=== PATIENT | female | born 1975 | race Caucasian/White ===

== ENCOUNTER 2016-10-17 18:36 | Emergency (ER) | payer MEDICAID ==
[2016-10-17 18:51] VITALS: BP 118/72
--- NOTE | 2016-10-17 19:04 | EDM.PDOC ---
ED HPI Trauma - General Chief Complaint: Lower Extremity Injury/Pain Stated Complaint: LEFT KNEE PAIN Time Seen by Provider: 10/17/16 19:00 - History of Present Illness INITIAL COMMENTS - FREE TEXT/NARRATIVE: 71-year-old female presents emergency room with left knee pain. Approximately 5:00 this afternoon the patient fell leaving the [employer] parking lot. She crashed hard with her kneecap slowly getting solidly hitting the concrete. There may have been a twisting component to her knee as she went down. She was trying to protect her groceries, potatoes did not make it. Patient has a history of prior knee problems. She denies any other injuries from this fall however earlier this winter she did fall and fracture her tailbone. Past medical history noncontributory she's had a hysterectomy. Allergies/ADRs: Allergies latex Allergy (Verified 10/17/16 18:51) Hives Penicillins Allergy (Verified 10/17/16 18:51) Edema Sulfa (Sulfonamide Antibiotics) Allergy (Verified 10/17/16 18:51) Edema meperidine HCl [From Demerol] Adverse Reaction (Verified 03/07/16 10:07) Drowsiness Home Medications: Ambulatory Orders Aspirin [Adult Low Dose Aspirin EC] 1 tab PO DAILY 01/04/16 [Confirmed 10/17/16] L.acidoph,Paracasei, B.lactis [Probiotic] 1 cap PO DAILY 01/04/16 [Confirmed 10/31] Linaclotide [Linzess] 1 cap PO DAILY 01/04/16 [Confirmed 10/17/16] Polyethylene Glycol 3350 [MiraLAX] 17 gm PO DAILY 03/07/16 [Confirmed 10/17/16] Acetaminophen [Tylenol] 650 mg PO Q6H PRN #0 tablet 03/10/16 [Confirmed 10/17/16 ] Ibuprofen [Motrin] 400 mg PO Q6H PRN #0 tablet 03/10/16 [Confirmed 10/17/16] traMADol [Ultram] 25 mg PO BEDTIME 10/17/16 [Confirmed 10/17/16] Past Medical History HEENT History: Reports: Other (see below) Other HEENT History: tinnitus Respiratory History: Gastrointestinal History: Reports: Cholelithiasis, GERD, Helicobacter pylori Genitourinary History: Reports: Urinary incontinence 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: Reports: Endometriosis, Musculoskeletal History: Reports: Back pain, chronic Neurological History: Reports: Migraines, Seizure Psychiatric History: Reports: Anxiety, Depression Endocrine/Metabolic History: Reports: Obesity/BMI 30+ Immunologic History: Reports: SLE Other Immunologic History: diagnosed with lupus in 2014: self management at this time - Infectious Disease History Infectious Disease History: Reports: Helicobacter pylori - Past Surgical History Other Female Surgeries/Procedures: laparoscopic aspiration ovarian cyst Other Musculoskeletal Surgeries/Procedures:: bilateral foot surgery Social & Family History - Tobacco Use Smoking Status *Q: Current Every Day Smoker Years of Tobacco use: 15 Packs/Tins Daily: 0.5 Used Tobacco, but Quit: No Second Hand Smoke Exposure: Yes - Alcohol Use Days Per Week of Alcohol Use: 5 Number of Drinks Per Day: 1 Total Drinks Per Week: 5 - Recreational Drug Use Recreational Drug Use: No Drug Use in Last 12 Months: No Review of Systems - Review of Systems Review Of Systems: See Below Constitutional: Reports: no symptoms Respiratory: Reports: no symptoms Cardiovascular: Reports: no symptoms GI/Abdominal: Reports: No symptoms Trauma Exam - Physical Exam Exam: See Below Exam Limited By: No limitations General Appearance: Reports: alert, no apparent distress Respiratory Exam: Reports: no respiratory distress, lungs clear, normal breath sounds Cardiovascular: Reports: regular rate, rhythm, no edema, no murmur Extremities: Reports: other (Examination of the left knee shows mild swelling around the base the patella the patella palpates intact is very tender exact tension of her lower leg is tender to the patella. Palpation of her knee reveals no tenderness over the lateral joint line or LCL she has some modest tenderness over the medial joint line and MCL she has mild distraction with stressing the MCL this is hard to do because of pre-existing discomfort.) Course - Vital Signs Last Recorded V/S: Last Vital Signs Temp 36.7 C 10/17/16 18:40 Pulse 82 10/17/16 18:40 Resp 16 10/17/16 18:40 BP 118/72 10/17/16 18:40 Pulse Ox 97 10/17/16 18:40 - Orders/Labs/Meds Orders: Active Orders 24 hr Category Date Time Status Knee 3V Lt [CR] Stat Exams 10/17/16 19:15 Taken - Re-Assessments/Exams Free Text/Narrative Re-Assessment/Exam: 10/17/16 20:12 x-ray examination showed no acute fracture dislocation. The patella is riding slightly high. Patient's case discussed with Dr. Roca patient will be placed in a knee immobilizer and use crutches and will follow up with Dr. Roca on Thursday.the patient may have an MCL strain. But definitely irritated tissue between the patella and the articular surfaces. Departure - Departure Time of Disposition: 20:13 Disposition: Home, Self-Care 01 Clinical Impression: Right knee injury Referrals: Yamilex Meeks DO [Primary Care Provider] - Pradeep Roca MD [Physician] - Forms: ED Department Discharge Additional Instructions: Return to emergency room if any questions or problems. Use your crutches and a knee immobilizer all the time. Followup with Dr. Roca Thursday morning call first thing Thursday to arrange an appointment. Keep your knee elevated as much as she can tolerate it and keep it iced as tolerable. No more falling! - My Orders Last 24 Hours: My Active Orders 10/17/16 19:15 Knee 3V Lt [CR] Stat - Assessment/Plan Last 24 Hours: My Active Orders 10/17/16 19:15 Knee 3V Lt [CR] Stat
--- NOTE | 2016-10-20 08:02 | CR ---
Left knee: AP, lateral and sunrise patellar views of the left knee were obtained. Minimal medial joint space narrowing is seen. Lateral joint space is preserved. Soft tissue swelling is seen anteriorly. No acute fracture or other bony abnormality is identified. Impression: 1. Mild medial joint space degenerative change. 2. Soft tissue swelling. Diagnostic code #2
== END 2016-10-17 20:28 | disposition home or self-care (01) ==
LOC: JD.ED 18:36
DX: S89.91XA Unspecified injury of right lower leg, initial encounter (principal); K21.9 Gastro-esophageal reflux disease without esophagitis; G43.909 Migraine, unspecified, not intractable, without status migrainosus; F41.8 Other specified anxiety disorders; E66.9 Obesity, unspecified; M32.9 Systemic lupus erythematosus, unspecified; F17.210 Nicotine dependence, cigarettes, uncomplicated; Z68.30 Body mass index [BMI] 30.0-30.9, adult; Z98.890 Other specified postprocedural states; Z79.899 Other long term (current) drug therapy; Z79.82 Long term (current) use of aspirin; Z88.0 Allergy status to penicillin; Z88.2 Allergy status to sulfonamides; Z88.8 Allergy status to other drugs, medicaments and biological substances; Z91.040 Latex allergy status; Z90.710 Acquired absence of both cervix and uterus; W01.198A Fall on same level from slipping, tripping and stumbling with subsequent striking against other object, initial encounter; Y92.481 Parking lot as the place of occurrence of the external cause
CPT/HCPCS: 73562-26-LT; 73562-LT; 99282; 99283

== ENCOUNTER 2017-02-23 19:39 | Emergency (ER) | payer MEDICAID ==
--- NOTE | 2017-02-23 19:52 | EDM.PDOC ---
ED HPI GENERAL MEDICAL PROBLEM - General Chief Complaint: Laceration Stated Complaint: laceration to wrist Time Seen by Provider: 02/23/17 19:51 Source of Information: Reports: Patient History Limitations: Reports: No Limitations - History of Present Illness INITIAL COMMENTS - FREE TEXT/NARRATIVE: 41-year-old female presents for evaluation treatment of a laceration to the right distal forearm. Patient reports that the injury occurred prior to arrival in the ER. She reports she had she was grabbing something out of her sink. She states that she was cut with a serrated electric knife blade. Bleeding is controlled upon my examination. No numbness, tingling or decreased range of motion. Tetanus is up-to-date. Patient is right-handed. Patient assures me that this wound is not self inflicted. Onset: Today Location: Reports: Upper Extremity, Right - Related Data Allergies Allergy/AdvReac Type Severity Reaction Status Date / Time latex Allergy Hives Verified 02/23/17 19:48 Penicillins Allergy Edema Verified 02/23/17 19:48 Sulfa (Sulfonamide Allergy Edema Verified 02/23/17 19:48 Antibiotics) meperidine HCl [From Demerol] AdvReac Drowsiness Verified 02/23/17 19:48 Home Meds: Home Meds Aspirin [Adult Low Dose Aspirin EC] 1 tab PO DAILY 01/04/16 [History] L.acidoph,Paracasei, B.lactis [Probiotic] 1 cap PO DAILY 01/04/16 [History] Linaclotide [Linzess] 1 cap PO DAILY 01/04/16 [History] Polyethylene Glycol 3350 [MiraLAX] 17 gm PO DAILY 03/07/16 [History] Acetaminophen [Tylenol] 650 mg PO Q6H PRN #0 tablet 03/10/16 [Rx] Ibuprofen [Motrin] 400 mg PO Q6H PRN #0 tablet 03/10/16 [Rx] traMADol [Ultram] 25 mg PO BEDTIME 10/17/16 [History] Past Medical History HEENT History: Reports: Other (See Below) Other HEENT History: tinnitus Respiratory History: Gastrointestinal History: Reports: Cholelithiasis, GERD, Helicobacter Pylori Genitourinary History: Reports: Urinary Incontinence 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 - Infectious Disease History Infectious Disease History: Reports: Helicobacter Pylori - Past Surgical History Head Surgeries/Procedures: Reports: None HEENT Surgical History: Reports: Adenoidectomy, Tonsillectomy Cardiovascular Surgical History: Reports: None Female Surgical History: Reports: Section, Hysterectomy Social & Family History - Tobacco Use Smoking Status *Q: Current Every Day Smoker Years of Tobacco use: 26 Packs/Tins Daily: 1 Used Tobacco, but Quit: No Second Hand Smoke Exposure: Yes - Caffeine Use Caffeine Use: Reports: Energy Drinks - Alcohol Use Days Per Week of Alcohol Use: 5 Number of Drinks Per Day: 1 Total Drinks Per Week: 5 - Recreational Drug Use Recreational Drug Use: No Drug Use in Last 12 Months: No ED ROS GENERAL - Review of Systems Review Of Systems: See Below Musculoskeletal: Reports: Arm Pain (right distal anterior forearm), Other (no decreased ROM to the right hand and wrist) Skin: Reports: Wound (1.5 cm laceration to the right distal anterior forearm) Neurological: Denies: Numbness, Tingling ED EXAM, SKIN/RASH Exam: See Below Exam Limited By: No Limitations General Appearance: Alert, WD/WN, No Apparent Distress Respiratory/Chest: No Respiratory Distress Cardiovascular: Normal Peripheral Pulses, Regular Rate, Rhythm Peripheral Pulses: 2+: Radial (L), Radial (R) Extremities: Normal Range of Motion (patient is able to make a fist, flex and extend fingers and wrist, abduct and adduct fingers), Normal Capillary Refill Neurological: Alert, Oriented Psychiatric: Normal Affect, Normal Mood Skin: Warm, Dry, Wound/Incision (1.5 cm laceration to the right anterior distal forearm) Location, Skin: Upper Extremity, Right Characteristics: Linear ED SKIN PROCEDURES - Laceration/Wound Repair Right Anterior Distal Arm Lac/Wound length In cm: 1.5 Appearance: Subcutaneous Distal NVT: Neuro & Vascular Intact, No Tendon Injury Anesthetic Type: Local Local Anesthesia - Lidocaine (Xylocaine): 1% Plain Local Anesthetic Volume: 1cc Skin Prep: Saline, Sterile Drape, Other (kerraclens) Suture Size: 4-0 # of Sutures: 3 Suture Type: Nylon, Interrupted, Simple Sterile Dressing Applied: Nurse Tetanus Status Addressed: Yes Complications: No Course - Vital Signs Last Recorded V/S: Last Vital Signs Temp 36.3 C 02/23/17 19:46 Pulse 78 02/23/17 19:46 Resp 16 02/23/17 19:46 BP 115/79 02/23/17 19:46 Pulse Ox 97 02/23/17 19:46 - Orders/Labs/Meds Meds: Medications Discontinued Medications Generic Name Dose Route Start Last Admin Trade Name Nathan PRN Reason Stop Dose Admin Lidocaine HCl 50 ml 02/23/17 19:56 02/23/17 20:40 Xylocaine 1% INJECT 02/23/17 19:57 50 ml ONETIME ONE Administration - Re-Assessments/Exams Free Text/Narrative Re-Assessment/Exam: 02/23/17 20:39 3 sutures placed to the anterior distal right forearm. Patient tolerated the procedure well. There were no complications. Her tetanus is up-to-date. She assures me that this is not a self-inflicted wound. We will discharge her home at this time. Discharge instructions as documented. Departure - Departure Time of Disposition: 20:40 Disposition: Home, Self-Care 01 Condition: Good Clinical Impression: Laceration - Discharge Information Instructions: Laceration Care, Adult, [id number] Referrals: Yamilex Meeks DO [Primary Care Provider] - Sunita Mccracken PA-C [Physician Casing In Line Setter] - Forms: ED Department Discharge Additional Instructions: Wash the wound with gentle soap and water twice a day. Apply antibacterial ointment to wound twice a day for the first 3 days. Keep the wound covered. Monitor for signs of infection such as increased swelling, pus or erythema. Present to the clinic or the ER should these develop. over the counter Tylenol or Motrin as needed for pain. Have the sutures removed in 10 days. the [facility] located on the [facility] is open 8 AM to 5 PM Thursday through Thursday. They will remove the sutures for free. Call [phone] to schedule the provider there, recommend Leila Mccracken PA-C. please return to the ER if your symptoms change or worsen.
[2017-02-23] MEDS ORDERED: Lidocaine 1% 50 ML MDV INJECT ONE (19:56)
[2017-02-23 19:59] VITALS: BP 115/79
== END 2017-02-23 20:45 | disposition home or self-care (01) ==
LOC: JD.ED 19:39
DX: S51.811A Laceration without foreign body of right forearm, initial encounter (principal); K21.9 Gastro-esophageal reflux disease without esophagitis; E66.9 Obesity, unspecified; F17.210 Nicotine dependence, cigarettes, uncomplicated; Z86.2 Personal history of diseases of the blood and blood-forming organs and certain disorders involving the immune mechanism; Z90.710 Acquired absence of both cervix and uterus; Z98.890 Other specified postprocedural states; Z88.0 Allergy status to penicillin; Z88.2 Allergy status to sulfonamides; Z91.040 Latex allergy status; Z68.41 Body mass index [BMI] 40.0-44.9, adult; Z88.8 Allergy status to other drugs, medicaments and biological substances; Z79.82 Long term (current) use of aspirin; Z79.899 Other long term (current) drug therapy; W29.1XXA Contact with electric knife, initial encounter
CPT/HCPCS: 12001; 99282-25; 99283-25

== ENCOUNTER 2018-08-12 17:42 | Emergency (ER) | payer MEDICAID ==
[2018-08-12 18:19] VITALS: BP 137/93
[2018-08-12] MEDS ORDERED: Ketorolac 30 MG/ML SDV IVPUSH ONE (19:07)
[2018-08-12] MEDS ORDERED: Ondansetron 4 MG/2 ML SDV IVPUSH ONE (19:07)
[2018-08-12] MEDS ORDERED: Sodium Chloride 0.9% 10 ML Syringe FLUSH PRN (19:09)
--- NOTE | 2018-08-12 19:43 | EDM.PDOC ---
ED HPI GENERAL MEDICAL PROBLEM - General Chief Complaint: Flank Pain Stated Complaint: RT SIDE PAIN Time Seen by Provider: 08/12/18 18:17 Source of Information: Reports: Patient, Old Records (prior CT done on 07/29/18) , RN Notes Reviewed History Limitations: Reports: No Limitations - History of Present Illness INITIAL COMMENTS - FREE TEXT/NARRATIVE: Patient is a 42 year old female who presents to the ED for the evaluation of right sided abdominal pain. This has been present for about 2 weeks. As of 2 days ago, this pain started to radiate into her upper back. She notes this to be a sharp, shooting, stabbing pain. She states that the pain is similar to when she has had kidney infections in the past. She has had her gallbladder taken out but still has her appendix. The pain comes and goes with nothing that really provokes this or anything that makes it feel better. She states that she has had a normal BM 1 week ago and notes that having 1 BM per week is normal for her. She does have some nausea but denies vomiting or diarrhea. She notes a history of endometriosis as well. She does note that she has had a hysterectomy but her ovaries are retained. She normally takes 400mg of ibuprofen and 600 mg of tylenol daily in the morning for aches and pains. She states that she did have and abdominal CT 1 week ago that was WNL. This was ordered by Zina Tirado. She does note that her boyfriend has been sick with nausea and vomiting. Right Flank Pain Score (Numeric/FACES): 5 - Related Data Allergies Allergy/AdvReac Type Severity Reaction Status Date / Time latex Allergy Hives Verified 08/12/18 18:19 Penicillins Allergy Edema Verified 08/12/18 18:19 Sulfa (Sulfonamide Allergy Edema Verified 08/12/18 18:19 Antibiotics) meperidine HCl [From Demerol] AdvReac Drowsiness Verified 08/12/18 18:19 Home Meds: Home Meds Aspirin [Adult Low Dose Aspirin EC] 1 tab PO DAILY 01/04/16 [History] Acetaminophen [Tylenol] 650 mg PO Q6H PRN #0 tablet 03/10/16 [Rx] Ibuprofen [Motrin] 400 mg PO Q6H PRN #0 tablet 03/10/16 [Rx] Escitalopram [Lexapro] 10 mg PO DAILY #30 tab 05/29/18 [Rx] clonazePAM [Clonazepam] 0.25 mg PO BID PRN #20 tab.rapdis 05/29/18 [Rx] Ondansetron [Zofran ODT] 4 mg PO Q6H PRN #20 tab.dis 08/12/18 [Rx] Past Medical History HEENT History: Reports: Other (See Below) Other HEENT History: tinnitus Respiratory History: Gastrointestinal History: Reports: Cholelithiasis, GERD, Helicobacter Pylori Genitourinary History: Reports: Urinary Incontinence [employer] History: Reports: Endometriosis, Musculoskeletal History: Reports: Back Pain, Chronic Neurological History: Reports: Migraines, Seizure Psychiatric History: Reports: Anxiety, Depression Endocrine/Metabolic History: Reports: Obesity/BMI 30+ Hematologic History: Reports: Anemia Immunologic History: Reports: SLE Other Immunologic History: diagnosed with lupus in 2014: self management at this time Oncologic (Cancer) History: Reports: Leukemia Dermatologic History: Reports: Eczema Other Dermatologic History: lupus rash. - Infectious Disease History Infectious Disease History: Reports: Helicobacter Pylori - Past Surgical History Head Surgeries/Procedures: Reports: None HEENT Surgical History: Reports: Adenoidectomy, Tonsillectomy Cardiovascular Surgical History: Reports: None Female Surgical History: Reports: Section, Hysterectomy Social & Family History - Tobacco Use Smoking Status *Q: Current Every Day Smoker Years of Tobacco use: 30 Packs/Tins Daily: 0.5 - Caffeine Use Caffeine Use: Reports: Coffee, Energy Drinks - Recreational Drug Use Recreational Drug Use: No ED ROS GENERAL - Review of Systems Review Of Systems: See Below Constitutional: Denies: Fever, Chills, Malaise, Weakness HEENT: Reports: No Symptoms Respiratory: Reports: No Symptoms Cardiovascular: Reports: No Symptoms Endocrine: Reports: No Symptoms GI/Abdominal: Reports: Abdominal Pain (right sided, RUQ), Nausea. Denies: Anorexia, Constipation, Diarrhea, Decreased Appetite, Vomiting : Reports: No Symptoms Musculoskeletal: Reports: Back Pain (right upper back pain) Skin: Reports: No Symptoms Neurological: Reports: No Symptoms Psychiatric: Reports: No Symptoms Hematologic/Lymphatic: Reports: No Symptoms Immunologic: Reports: No Symptoms ED EXAM, GI/ABD - Physical Exam Exam: See Below Exam Limited By: No Limitations General Appearance: Alert, WD/WN, Mild Distress Eyes: Bilateral: Normal Appearance Ears: Normal External Exam Nose: Normal Inspection Throat/Mouth: Normal Inspection, Normal Oropharynx, No Airway Compromise Head: Atraumatic, Normocephalic Neck: Normal Inspection, Supple, Non-Tender, Full Range of Motion Respiratory/Chest: No Respiratory Distress, Lungs Clear, Normal Breath Sounds, No Accessory Muscle Use, Chest Non-Tender Cardiovascular: Normal Peripheral Pulses, Regular Rate, Rhythm, No Murmur GI/Abdominal Exam: Normal Bowel Sounds, Soft, No Organomegaly, No Distention, No Mass, Tender (RUQ with light and deep palpation). No: Guarding, Rigid, Rebound Extremities: Normal Inspection, Normal Capillary Refill Neurological: Alert, Oriented, Normal Cognition, No Motor/Sensory Deficits Psychiatric: Normal Affect, Normal Mood Skin Exam: Warm, Dry, Intact, Normal Color, No Rash Lymphatic: No Adenopathy Course - Vital Signs Last Recorded V/S: Last Vital Signs Temp 97.7 F 08/12/18 18:15 Pulse 79 08/12/18 18:15 Resp 16 08/12/18 18:15 BP 137/93 H 08/12/18 18:15 Pulse Ox 100 08/12/18 18:15 - Orders/Labs/Meds Orders: Active Orders 24 hr Category Date Time Status Peripheral IV Care [RC] . DIRECTED Care 08/12/18 19:09 Active Sodium Chloride 0.9% [Saline Flush] Med 08/12/18 19:09 Active 10 ml FLUSH ASDIRECTED PRN Peripheral IV Insertion Adult [OM.PC] Routine Oth 08/12/18 19:09 Ordered Medication Orders Sodium Chloride (Saline Flush) 10 ml FLUSH ASDIRECTED PRN PRN Reason: Keep Vein Open Last Admin: 08/12/18 19:51 Dose: 10 ml Labs: Laboratory Tests 08/12/18 08/12/18 08/12/18 Range/Units 18:20 19:53 19:53 WBC 12.78 H (3.98-10.04) K/mm3 RBC 4.31 (3.98-5.22) M/mm3 Hgb 14.2 (11.2-15.7) gm/L Hct 41.6 (34.1-44.9) % MCV 96.5 H (79.4-94.8) fl MCH 32.9 H (25.6-32.2) pg MCHC 34.1 (32.2-35.5) g/dl RDW Std Deviation 48.5 H (36.4-46.3) fL Plt Count 223 (182-369) K/mm3 MPV 11.9 (9.4-12.3) fl Neutrophils % (Manual) 60 (40-60) % Band Neutrophils % 1 (0-10) % Lymphocytes % (Manual) 27 (20-40) % Atypical Lymphs % 0 % Monocytes % (Manual) 6 (2-10) % Eosinophils % (Manual) 5 (0.7-5.8) % Basophils % (Manual) 1 (0.1-1.2) Platelet Estimate Adequate RBC Morph Comment Normal Sodium 138 (136-145) mEq/L Potassium 3.9 (3.5-5.1) mEq/L Chloride 103 (98-107) mEq/L Carbon Dioxide 25 (21-32) mEq/L Anion Gap 13.9 (5-15) BUN 11 (7-18) mg/dL Creatinine 0.7 (0.55-1.02) mg/dL Est Cr Clr Drug Dosing 78.20 mL/min Estimated GFR (MDRD) > 60 (>60) mL/min BUN/Creatinine Ratio 15.7 (14-18) Glucose 92 (74-106) mg/dL Calcium 9.7 (8.5-10.1) mg/dL Total Bilirubin 0.3 (0.2-1.0) mg/dL AST 20 (15-37) U/L ALT 35 (14-59) U/L Alkaline Phosphatase 51 (46-116) U/L C-Reactive Protein 0.4 (<1.0) mg/dL Total Protein 7.8 (6.4-8.2) g/dl Albumin 4.2 (3.4-5.0) g/dl Globulin 3.6 gm/dL Albumin/Globulin Ratio 1.2 (1-2) Lipase 138 (73-393) U/L Urine Color Yellow (Yellow) Urine Appearance Clear (Clear) Urine pH 6.5 (5.0-8.0) Ur Specific [place] 1.015 (1.005-1.030) Urine Protein Negative (Negative) Urine Glucose (UA) Negative (Negative) Urine Ketones Negative (Negative) Urine Occult Blood Negative (Negative) Urine Nitrite Negative (Negative) Urine Bilirubin Negative (Negative) Urine Urobilinogen 0.2 (0.2-1.0) Ur Leukocyte Esterase Negative (Negative) Urine RBC 0-5 (0-5) /hpf Urine WBC 0-5 (0-5) /hpf Ur Epithelial Cells 5-10 H (0-5) /hpf Urine Bacteria Few (FEW) /hpf Urine Mucus Not seen (FEW) /hpf Meds: Medications Generic Name Dose Route Start Last Admin Trade Name Freq PRN Reason Stop Dose Admin Sodium Chloride 10 ml 08/12/18 19:09 08/12/18 19:51 Saline Flush FLUSH 10 ml ASDIRECTED PRN Administration Keep Vein Open Discontinued Medications Generic Name Dose Route Start Last Admin Trade Name Freq PRN Reason Stop Dose Admin Ketorolac Tromethamine 30 mg 08/12/18 19:07 08/12/18 19:50 Toradol IVPUSH 08/12/18 19:08 30 mg ONETIME ONE Administration Ondansetron HCl 4 mg 08/12/18 19:07 08/12/18 19:50 Zofran IVPUSH 08/12/18 19:08 4 mg ONETIME ONE Administration - Radiology Interpretation Free Text/Narrative:: CT performed on 07/29/18 demonstrates: CT abdomen and pelvis Technique: Multiple axial sections were obtained from above the dome of the diaphragm inferiorly through the pubic symphysis. Intravenous and oral contrast was utilized. Delayed images were obtained through the bladder. Findings: Small portion of the visualized lung bases show nothing acute. Liver contains no focal parenchymal abnormality. Gallbladder not identified. Spleen appears within normal limits. Adrenal glands show no nodule. Pancreas is within normal limits. Kidneys show symmetric contrast enhancement without hydronephrosis or mass. Aorta shows no aneurysm. No retroperitoneal adenopathy is seen. No mesenteric abnormalities are seen. No pelvic mass or adenopathy is noted. Minimal diverticuli seen within the descending and sigmoid colon without inflammatory change of diverticulitis. Small anterior abdominal hernia is seen slightly inferior to the umbilicus which contains fat. Minimal increased density within the fat is seen suggesting minimal inflammatory change. Appendix is seen and is normal in size. Delayed images show contrast within the distal ureters and within the bladder. Bone window settings were reviewed which show degenerative change within the lower apophyseal joints within the lumbar spine. Impression: 1. Small anterior abdominal wall fat-containing hernia. Fat within the hernia shows slight increased density and difficult to exclude small amount of incarceration. Please correlate with the patient's symptoms. 2. Other incidental findings. - Re-Assessments/Exams Free Text/Narrative Re-Assessment/Exam: 08/12/18 19:45 Pt presents to the ED for the evaluation of right sided abdominal/back pain. Etiology is unclear at this time. UA, CBC, CMP, CRP and a lipase have been ordered for further evaluation. 4mg IV zofran and 30 mg IV toradol have been ordered for nausea and pain relief. 08/12/18 20:38 Most labs have returned, her WBC count is 12.78, and everything else is WNL. Her pain has improved after the zofran. It is likely that she may have some abdominal wall spasms due to the nausea and retching the past 2 days. Departure - Departure Time of Disposition: 21:10 Disposition: Home, Self-Care 01 Condition: Fair Clinical Impression: Nausea Abdominal muscle strain Qualifiers: Encounter type: initial encounter Qualified Code(s): S39.011A - Strain of muscle, fascia and tendon of abdomen, initial encounter - Discharge Information *PRESCRIPTION DRUG MONITORING PROGRAM REVIEWED*: No *COPY OF PRESCRIPTION DRUG MONITORING REPORT IN PATIENT PEDRITO: No Prescriptions: Ondansetron [Zofran ODT] 4 mg PO Q6H PRN #20 tab.dis PRN Reason: Nausea Instructions: Muscle Strain, [id number], Nausea, Adult, [id number] Referrals: Zina Tirado, SENIOR MECHANICAL TECHNICIAN [Primary Care Provider] - Forms: ED Department Discharge Additional Instructions: You have been evaluated in the ED for your right sided pain. It is likely that you have an abdominal muscle strain due to the retching from nausea. Please take the zofran every 6 hours as needed for nausea. Please return to the ED if your symptoms change or worsen. - My Orders Last 24 Hours: My Active Orders 08/12/18 19:09 Peripheral IV Care [RC] . DIRECTED Sodium Chloride 0.9% [Saline Flush] 10 ml FLUSH ASDIRECTED PRN Peripheral IV Insertion Adult [OM.PC] Routine - Assessment/Plan Last 24 Hours: My Active Orders 08/12/18 19:09 Peripheral IV Care [RC] . DIRECTED Sodium Chloride 0.9% [Saline Flush] 10 ml FLUSH ASDIRECTED PRN Peripheral IV Insertion Adult [OM.PC] Routine
== END 2018-08-12 21:25 | disposition home or self-care (01) ==
LOC: JD.ED 17:42
DX: S39.011A Strain of muscle, fascia and tendon of abdomen, initial encounter (principal); R11.0 Nausea; K21.9 Gastro-esophageal reflux disease without esophagitis; F41.9 Anxiety disorder, unspecified; F32.9 Major depressive disorder, single episode, unspecified; F17.210 Nicotine dependence, cigarettes, uncomplicated; Z91.040 Latex allergy status; Z88.0 Allergy status to penicillin; Z88.2 Allergy status to sulfonamides; Z88.5 Allergy status to narcotic agent; Z79.82 Long term (current) use of aspirin; Z79.899 Other long term (current) drug therapy; X58.XXXA Exposure to other specified factors, initial encounter
CPT/HCPCS: 36415; 80053; 81001; 83690; 85007; 85027; 86140; 96374; 96375; 99284; J1885; J2405

== ENCOUNTER 2018-09-09 18:39 | Emergency (ER) | payer MEDICAID ==
[2018-09-09] MEDS ORDERED: Ondansetron 4 MG/2 ML SDV IVPUSH ONE (19:08)
[2018-09-09] MEDS ORDERED: Sodium Chloride 0.9% 10 ML Syringe FLUSH PRN (19:08)
[2018-09-09] MEDS ORDERED: Sodium Chloride 0.9% 1,000 ML IV STA (19:08)
[2018-09-09] MEDS ORDERED: HYDROmorphone 1 MG/ML Syringe IVPUSH ONE ×3 (19:10→22:05)
[2018-09-09] MEDS ORDERED: diazePAM 5 MG/ML-2ml Syringe IV ONE (20:25)
--- NOTE | 2018-09-09 20:26 | EDM.PDOC ---
ED HPI GENERAL MEDICAL PROBLEM - General Chief Complaint: Abdominal Pain Stated Complaint: ABDOMINAL PAIN Time Seen by Provider: 09/09/18 18:49 Source of Information: Reports: Patient, Family History Limitations: Reports: No Limitations - History of Present Illness INITIAL COMMENTS - FREE TEXT/NARRATIVE: The patient presents with right upper quadrant abdominal pain. This has been an on going problem for years. In 2016, she had her gallbladder removed by Dr Scott. There were no complications with the procedure. She says since then she has continued to have pain in the RUQ. She says the pain will come and go and sometime food affects it. She has nausea and vomiting. She has been seen by her doctor and she had an US, CT and an MRI of her spine. The US showed nothing bad. Her CT showed an abdominal hernia with some incarcerated fat. She did not follow up with Dr Scott because he did leave. She still has her appendix. She has no diarrhea or dysuria. The past 3 days have been the worst. Onset: Gradual Duration: Week(s): (for years) Location: Reports: Abdomen Quality: Reports: Sharp Severity: Severe Improves with: Reports: Other (Putting pressure on the area) Worsens with: Reports: None Associated Symptoms: Reports: Nausea/Vomiting. Denies: Chest Pain, Cough, Fever /Chills, Headaches, Shortness of Breath Right Abdomen Pain Score (Numeric/FACES): 5 - Related Data Allergies Allergy/AdvReac Type Severity Reaction Status Date / Time latex Allergy Hives Verified 09/09/18 18:54 Penicillins Allergy Edema Verified 09/09/18 18:54 Sulfa (Sulfonamide Allergy Edema Verified 09/09/18 18:54 Antibiotics) meperidine HCl [From Demerol] AdvReac Drowsiness Verified 09/09/18 18:54 Home Meds: Home Meds Aspirin [Adult Low Dose Aspirin EC] 1 tab PO DAILY 01/04/16 [History] Acetaminophen [Tylenol] 650 mg PO Q6H PRN #0 tablet 03/10/16 [Rx] Ibuprofen [Motrin] 400 mg PO Q6H PRN #0 tablet 03/10/16 [Rx] Escitalopram [Lexapro] 10 mg PO DAILY #30 tab 05/29/18 [Rx] clonazePAM [Clonazepam] 0.25 mg PO BID PRN #20 tab.rapdis 05/29/18 [Rx] Ondansetron [Zofran ODT] 4 mg PO Q6H PRN #20 tab.dis 08/12/18 [Rx] Diazepam [Valium] 5 mg PO TID PRN #20 tablet 09/09/18 [Rx] Hydrocodone/Acetaminophen [Hydrocodon-Acetaminophen 5-325] 1 - 2 each PO Q6HR PRN #20 tablet 09/09/18 [Rx] Past Medical History HEENT History: Reports: Other (See Below) Other HEENT History: tinnitus Respiratory History: Gastrointestinal History: Reports: Cholelithiasis, GERD, Helicobacter Pylori Genitourinary History: Reports: Urinary Incontinence 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 - Infectious Disease History Infectious Disease History: Reports: Helicobacter Pylori - Past Surgical History Head Surgeries/Procedures: Reports: None HEENT Surgical History: Reports: Adenoidectomy, Tonsillectomy Cardiovascular Surgical History: Reports: None Female Surgical History: Reports: Section, Hysterectomy Social & Family History - Tobacco Use Smoking Status *Q: Current Every Day Smoker Years of Tobacco use: 28 Packs/Tins Daily: 0.5 - Caffeine Use Caffeine Use: Reports: None - Recreational Drug Use Recreational Drug Use: No ED ROS GENERAL - Review of Systems Review Of Systems: See Below Constitutional: Reports: No Symptoms HEENT: Reports: No Symptoms Respiratory: Reports: No Symptoms Cardiovascular: Reports: No Symptoms Endocrine: Reports: No Symptoms GI/Abdominal: Reports: Abdominal Pain, Nausea, Vomiting. Denies: Diarrhea : Reports: No Symptoms Musculoskeletal: Reports: No Symptoms Skin: Reports: No Symptoms Neurological: Reports: No Symptoms ED EXAM, GI/ABD - Physical Exam Exam: See Below Exam Limited By: No Limitations General Appearance: Alert, No Apparent Distress Ears: Normal External Exam Nose: Normal Inspection Head: Atraumatic, Normocephalic Neck: Normal Inspection Respiratory/Chest: No Respiratory Distress, Lungs Clear, Normal Breath Sounds Cardiovascular: Regular Rate, Rhythm, No Edema, No Murmur GI/Abdominal Exam: Soft, No Organomegaly, No Mass, Tender (Moderate point tenderness to the RUQ. The pain is made better by steady pressure to that area. ) Extremities: Normal Inspection Course - Vital Signs Last Recorded V/S: Last Vital Signs Temp 97.4 F 09/09/18 18:51 Pulse 89 09/09/18 18:51 Resp 16 09/09/18 18:51 BP 127/87 09/09/18 18:51 Pulse Ox 99 09/09/18 18:51 - Orders/Labs/Meds Orders: Active Orders 24 hr Category Date Time Status Peripheral IV Care [RC] . DIRECTED Care 09/09/18 19:08 Active Abdomen Pelvis w Cont [CT] Stat Exams 09/09/18 19:37 Taken HYDROmorphone [Dilaudid] Med 09/09/18 22:05 Once 0.5 mg IVPUSH ONETIME ONE Sodium Chloride 0.9% [Saline Flush] Med 09/09/18 19:08 Active 10 ml FLUSH ASDIRECTED PRN ED Antiemetic Medication Reflex [OM.PC] Stat Oth 09/09/18 19:09 Ordered Peripheral IV Insertion Adult [OM.PC] Stat Oth 09/09/18 19:08 Ordered Medication Orders Sodium Chloride (Saline Flush) 10 ml FLUSH ASDIRECTED PRN PRN Reason: Keep Vein Open Last Admin: 09/09/18 19:27 Dose: 10 ml Labs: Laboratory Tests 09/09/18 09/09/18 09/09/18 Range/Units 19:25 19:25 19:25 WBC 11.80 H (3.98-10.04) K/mm3 RBC 4.29 (3.98-5.22) M/mm3 Hgb 13.8 (11.2-15.7) gm/L Hct 41.4 (34.1-44.9) % MCV 96.5 H (79.4-94.8) fl MCH 32.2 (25.6-32.2) pg MCHC 33.3 (32.2-35.5) g/dl RDW Std Deviation 47.3 H (36.4-46.3) fL Plt Count 225 (182-369) K/mm3 MPV 11.8 (9.4-12.3) fl Neut % (Auto) 57.9 (34.0-71.1) % Lymph % (Auto) 32.3 (19.3-51.7) % [place] % (Auto) 6.5 (4.7-12.5) % Eos % (Auto) 2.5 (0.7-5.8) Baso % (Auto) 0.5 (0.1-1.2) % Neut # (Auto) 6.82 H (1.56-6.13) K/mm3 Lymph # (Auto) 3.81 H (1.18-3.74) K/mm3 [place] # (Auto) 0.77 H (0.24-0.36) K/mm3 Eos # (Auto) 0.30 (0.04-0.36) K/mm3 Baso # (Auto) 0.06 (0.01-0.08) K/mm3 D-Dimer, Quantitative 0.22 (0.19-0.50) mg/L Sodium (136-145) mEq/L Potassium (3.5-5.1) mEq/L Chloride (98-107) mEq/L Carbon Dioxide (21-32) mEq/L Anion Gap (5-15) BUN (7-18) mg/dL Creatinine (0.55-1.02) mg/dL Est Cr Clr Drug Dosing mL/min Estimated GFR (MDRD) (>60) mL/min BUN/Creatinine Ratio (14-18) Glucose (74-106) mg/dL Calcium (8.5-10.1) mg/dL Total Bilirubin (0.2-1.0) mg/dL GGT (5-55) U/L AST (15-37) U/L ALT (14-59) U/L Alkaline Phosphatase (46-116) U/L Troponin I (0.00-0.056) ng/mL Total Protein (6.4-8.2) g/dl Albumin (3.4-5.0) g/dl Globulin gm/dL Albumin/Globulin Ratio (1-2) Lipase (73-393) U/L Urine Color Light yellow (Yellow) Urine Appearance Clear (Clear) Urine pH 7.0 (5.0-8.0) Ur Specific [place] 1.010 (1.005-1.030) Urine Protein Negative (Negative) Urine Glucose (UA) Negative (Negative) Urine Ketones Negative (Negative) Urine Occult Blood Negative (Negative) Urine Nitrite Negative (Negative) Urine Bilirubin Negative (Negative) Urine Urobilinogen 0.2 (0.2-1.0) Ur Leukocyte Esterase Negative (Negative) Urine RBC 0-5 (0-5) /hpf Urine WBC 0-5 (0-5) /hpf Ur Epithelial Cells 0-5 (0-5) /hpf Urine Bacteria Occasional (FEW) /hpf Urine Mucus Not seen (FEW) /hpf 09/09/18 Range/Units 19:25 WBC (3.98-10.04) K/mm3 RBC (3.98-5.22) M/mm3 Hgb (11.2-15.7) gm/L Hct (34.1-44.9) % MCV (79.4-94.8) fl MCH (25.6-32.2) pg MCHC (32.2-35.5) g/dl RDW Std Deviation (36.4-46.3) fL Plt Count (182-369) K/mm3 MPV (9.4-12.3) fl Neut % (Auto) (34.0-71.1) % Lymph % (Auto) (19.3-51.7) % [place] % (Auto) (4.7-12.5) % Eos % (Auto) (0.7-5.8) Baso % (Auto) (0.1-1.2) % Neut # (Auto) (1.56-6.13) K/mm3 Lymph # (Auto) (1.18-3.74) K/mm3 [place] # (Auto) (0.24-0.36) K/mm3 Eos # (Auto) (0.04-0.36) K/mm3 Baso # (Auto) (0.01-0.08) K/mm3 D-Dimer, Quantitative (0.19-0.50) mg/L Sodium 143 (136-145) mEq/L Potassium 3.4 L (3.5-5.1) mEq/L Chloride 107 (98-107) mEq/L Carbon Dioxide 25 (21-32) mEq/L Anion Gap 14.4 (5-15) BUN 9 (7-18) mg/dL Creatinine 0.7 (0.55-1.02) mg/dL Est Cr Clr Drug Dosing 78.20 mL/min Estimated GFR (MDRD) > 60 (>60) mL/min BUN/Creatinine Ratio 12.9 L (14-18) Glucose 88 (74-106) mg/dL Calcium 9.0 (8.5-10.1) mg/dL Total Bilirubin 0.1 L (0.2-1.0) mg/dL GGT 77 H (5-55) U/L AST 25 (15-37) U/L ALT 43 (14-59) U/L Alkaline Phosphatase 60 (46-116) U/L Troponin I < 0.017 (0.00-0.056) ng/mL Total Protein 7.4 (6.4-8.2) g/dl Albumin 3.7 (3.4-5.0) g/dl Globulin 3.7 gm/dL Albumin/Globulin Ratio 1.0 (1-2) Lipase 181 (73-393) U/L Urine Color (Yellow) Urine Appearance (Clear) Urine pH (5.0-8.0) Ur Specific [place] (1.005-1.030) Urine Protein (Negative) Urine Glucose (UA) (Negative) Urine Ketones (Negative) Urine Occult Blood (Negative) Urine Nitrite (Negative) Urine Bilirubin (Negative) Urine Urobilinogen (0.2-1.0) Ur Leukocyte Esterase (Negative) Urine RBC (0-5) /hpf Urine WBC (0-5) /hpf Ur Epithelial Cells (0-5) /hpf Urine Bacteria (FEW) /hpf Urine Mucus (FEW) /hpf Meds: Medications Generic Name Dose Route Start Last Admin Trade Name Freq PRN Reason Stop Dose Admin Sodium Chloride 10 ml 09/09/18 19:08 09/09/18 19:27 Saline Flush FLUSH 10 ml ASDIRECTED PRN Administration Keep Vein Open Discontinued Medications Generic Name Dose Route Start Last Admin Trade Name Freq PRN Reason Stop Dose Admin Diatrizoate Meglum/Diatrizoate Sod 90 ml 09/09/18 21:25 09/09/18 21:27 Gastrografin 37% PO 09/09/18 21:26 90 ml ONETIME ONE Administration Diazepam 5 mg 09/09/18 20:25 09/09/18 20:35 Valium IV 09/09/18 20:26 5 mg ONETIME ONE Administration Hydromorphone HCl 1 mg 09/09/18 19:10 09/09/18 19:27 Dilaudid IVPUSH 09/09/18 19:11 1 mg ONETIME ONE Administration Hydromorphone HCl 0.5 mg 09/09/18 20:24 09/09/18 20:35 Dilaudid IVPUSH 09/09/18 20:25 0.5 mg ONETIME ONE Administration Sodium Chloride 1,000 mls @ 1,000 mls/hr 09/09/18 19:08 09/09/18 19:27 Normal Saline IV 09/09/18 20:07 1,000 mls/hr .BOLUS STA Administration Iopamidol 100 ml 09/09/18 21:25 09/09/18 21:31 Isovue-300 (61%) IVPUSH 09/09/18 21:26 100 ml ONETIME ONE Administration Ondansetron HCl 4 mg 09/09/18 19:08 09/09/18 19:28 Zofran IVPUSH 09/09/18 19:09 4 mg ONETIME ONE Administration - Re-Assessments/Exams Free Text/Narrative Re-Assessment/Exam: 09/09/18 20:29 I ordered an IV NS 1L bolus, zofran 4mg IV, dilaudid 1mg IV, labs, UA and a CT of her abdomen and pelvis. 09/09/18 22:06 Her WBC was elevated at 11.8. Her D-dimer was normal. Her K was a little low at 3.4. Her total bili was low at 0.1. Her GGT was slightly elevated at 77. Her AST and ALT are normal. Her troponin is negative. Her lipase is normal. Her UA shows no UTI. Her CT shows status post cholecystectomy, no evidence for biliary ductal dilatation or choledocholithiasis, 4.1cm left adnexal cyst consistent with a left ovarian cyst. Normal appendix right lower quadrant. The CT does not explain what is going on for her pain. I gave her more dilaudid and some valium. I will get her on some valium and hydrocodone. I will have her follow up with Dr Fuentes. Departure - Departure Time of Disposition: 22:15 Disposition: Home, Self-Care 01 Condition: Good Clinical Impression: Abdominal pain Qualifiers: Abdominal location: right upper quadrant Qualified Code(s): R10.11 - Right upper quadrant pain - Discharge Information *PRESCRIPTION DRUG MONITORING PROGRAM REVIEWED*: No *COPY OF PRESCRIPTION DRUG MONITORING REPORT IN PATIENT PEDRITO: No Prescriptions: Hydrocodone/Acetaminophen [Hydrocodon-Acetaminophen 5-325] 1 - 2 each PO Q6HR PRN #20 tablet PRN Reason: Pain Diazepam [Valium] 5 mg PO TID PRN #20 tablet PRN Reason: Pain Referrals: Zina Tirado, [employer] [Primary Care Provider] - Forms: ED Department Discharge Additional Instructions: Take the hydrocodone and valium as needed for the pain. Follow up with Dr Fuentes at [facility] in [place]. Her number is [phone]. Please return if you are worse. - My Orders Last 24 Hours: My Active Orders 09/09/18 19:08 Peripheral IV Care [RC] . DIRECTED Sodium Chloride 0.9% [Saline Flush] 10 ml FLUSH ASDIRECTED PRN Peripheral IV Insertion Adult [OM.PC] Stat 09/09/18 19:09 ED Antiemetic Medication Reflex [OM.PC] Stat 09/09/18 19:37 Abdomen Pelvis w Cont [CT] Stat 09/09/18 22:05 HYDROmorphone [Dilaudid] 0.5 mg IVPUSH ONETIME ONE - Assessment/Plan Last 24 Hours: My Active Orders 09/09/18 19:08 Peripheral IV Care [RC] . DIRECTED Sodium Chloride 0.9% [Saline Flush] 10 ml FLUSH ASDIRECTED PRN Peripheral IV Insertion Adult [OM.PC] Stat 09/09/18 19:09 ED Antiemetic Medication Reflex [OM.PC] Stat 09/09/18 19:37 Abdomen Pelvis w Cont [CT] Stat 09/09/18 22:05 HYDROmorphone [Dilaudid] 0.5 mg IVPUSH ONETIME ONE
[2018-09-09] MEDS ORDERED: Iopamidol 612 MG/ML 150 ML Bottle IVPUSH ONE (21:25)
[2018-09-09] MEDS ORDERED: Diatrizoate Meglumine/Diatrizoate Sodium 37% 120 ML Bottle PO ONE (21:25)
[2018-09-10 00:19] VITALS: BP 108/72
--- NOTE | 2018-09-10 07:31 | CT ---
CT abdomen and pelvis Technique: Multiple axial sections were obtained from above the dome of the diaphragm inferiorly through the pubic symphysis. Intravenous and oral contrast was utilized. Delayed images were obtained through the pelvis. Comparison: Prior CT abdomen and pelvis exam of 07/29/18. Findings: Small portion of the visualized lung bases are clear. Liver contains no focal abnormality. Gallbladder is not seen. No biliary duct dilatation is noted. Pancreas is within normal limits. Adrenal glands show no nodule. Spleen appears within normal limits. Kidneys show symmetric contrast enhancement. Very minimal calcification is noted within the left kidney compatible with a nonobstructing stone. Aorta shows no aneurysm. No retroperitoneal adenopathy or mesenteric abnormalities are seen. Small abdominal wall hernia is seen next to the umbilicus which is stable. Small cyst is noted within the left ovary measuring 3.8 cm. No additional pelvic abnormality is identified. Appendix is felt to be seen and is normal in size. No free fluid or inflammatory change is seen. Bone window settings were reviewed which shows mild degenerative change primarily within the lower lumbar spine. Impression: 1. 3.8 cm cyst within the left ovary. 2. Very small nonobstructing calculus within the left kidney. 3. Fat containing hernia next to the umbilicus. 4. No additional abnormality is appreciated on CT study of the abdomen and pelvis. Diagnostic code #3 I agree with preliminary report from [facility], finalized on 09/09/18, 10:56 PM Central Time
== END 2018-09-09 22:49 | disposition home or self-care (01) ==
LOC: JD.ED 18:39
DX: R10.11 Right upper quadrant pain (principal); F17.210 Nicotine dependence, cigarettes, uncomplicated; K21.9 Gastro-esophageal reflux disease without esophagitis; F41.9 Anxiety disorder, unspecified; F32.9 Major depressive disorder, single episode, unspecified; Z79.82 Long term (current) use of aspirin; Z79.899 Other long term (current) drug therapy; Z88.0 Allergy status to penicillin; Z88.2 Allergy status to sulfonamides; Z88.5 Allergy status to narcotic agent
CPT/HCPCS: 36415; 74177; 80053; 81001; 82977; 83690; 84484; 85025; 85379; 96361; 96374; 96375; 96376; 99284; J1170; J2405; J3360; J7040; Q9963; Q9967

== ENCOUNTER 2018-09-17 10:16 | Day surgery (SDC) | payer MEDICAID ==
[~2018-09-17 10:16] MED LIST: Lactated Ringers 1,000 ML IV SCH; Lidocaine 1%/Sod Bicarbonate in NS 8.4% 1 ML Syringe IDERM PRN; Sodium Chloride 0.9% 10 ML Syringe FLUSH PRN
--- NOTE | 2018-09-17 10:42 | PCM.PREANE ---
Preanesthetic Assessment - Anesthesia/Transfusion/Family Hx Anesthesia History: Prior Anesthesia Without Reaction Family History of Anesthesia Reaction: No Transfusion History: No Prior Transfusion(s) - Review of Systems General: No Symptoms Pulmonary: No Symptoms Cardiovascular: Dyspnea on Exertion Gastrointestinal: No Symptoms Neurological: Seizure (age 22) Other: Reports: Easy Bruising, Depression - Physical Assessment NPO Status Date: 09/16/18 NPO Status Time: 00:00 Pulse: 67 O2 Sat by Pulse Oximetry: 95 Respiratory Rate: 20 Blood Pressure: 145/97 Temperature: 36.9 C Height: 1.55 m Weight: 97 kg ASA Class: 2 Mental Status: Alert & Oriented x3 Airway Class: Mallampati = 1 Dentition: Reports: Normal Dentition Thyro-Mental Finger Breadths: 3 Mouth Opening Finger Breadths: 3 ROM/Head Extension: Full Lungs: Clear to Auscultation, Normal Respiratory Effort Cardiovascular: Regular Rate, Regular Rhythm - Allergies Allergies/Adverse Reactions: Allergies Allergy/AdvReac Type Severity Reaction Status Date / Time hydromorphone [From Dilaudid] Allergy Other Verified 09/16/18 13:05 latex Allergy Hives Verified 09/16/18 13:05 Penicillins Allergy Cannot Verified 09/16/18 13:05 Remember Sulfa (Sulfonamide Allergy Cannot Verified 09/16/18 13:05 Antibiotics) Remember meperidine HCl [From Demerol] AdvReac Other Verified 09/16/18 13:05 - Blood Blood Available: No Product(s) Available: None - Anesthesia Plan Pre-Op Medication Ordered: None - Acknowledgements Anesthesia Type Planned: MAC Pt an Appropriate Candidate for the Planned Anesthesia: Yes Alternatives and Risks of Anesthesia Discussed w Pt/Guardian: Yes Pt/Guardian Understands and Agrees with Anesthesia Plan: Yes PreAnesthesia Questionnaire HEENT History: Reports: Other (See Below) Other HEENT History: Tinnitus Cardiovascular History: Reports: None Respiratory History: Reports: Asthma Gastrointestinal History: Reports: GERD Other Gastrointestinal History: Ulcer, H. 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: Reports: Endometriosis, , Spontaneous Musculoskeletal History: Reports: Arthritis, Back Pain, Chronic Neurological History: Reports: Seizure, Other (See Below) Other Neuro History: Numbness of feet Psychiatric History: Reports: Addiction, Anxiety Endocrine/Metabolic History: Reports: Obesity/BMI 30+, Other (See Below) Other Endocrine/Metabolic History: Fatigue Hematologic History: Reports: Anemia Immunologic History: Reports: None Other Immunologic History: diagnosed with lupus in 2014: self management at this time Oncologic (Cancer) History: Reports: None Dermatologic History: Reports: None Other Dermatologic History: lupus rash. - Infectious Disease History Infectious Disease History: Reports: None - Past Surgical History Head Surgeries/Procedures: Reports: None HEENT Surgical History: Reports: Tonsillectomy, Other (See Below) Other HEENT Surgeries/Procedures: Tympanostomy tube placement Cardiovascular Surgical History: Reports: None Respiratory Surgical History: Reports: None GI Surgical History: Reports: Cholecystectomy Female Surgical History: Reports: Section, Cystectomy, Hysterectomy , Tubal Ligation Endocrine Surgical History: Reports: None Musculoskeletal Surgical History: Reports: Other (See Below) Other Musculoskeletal Surgeries/Procedures:: Bilateral recession gastrocnemius soleus with osteotomy Oncologic Surgical History: Reports: None Dermatological Surgical History: Reports: None - SUBSTANCE USE Smoking Status *Q: Current Every Day Smoker Tobacco Use Within Last Twelve Months: Cigarettes Second Hand Smoke Exposure: Yes Days Per Week of Alcohol Use: 2 Number of Drinks Per Day: 3 Total Drinks Per Week: 6 Recreational Drug Use History: No Recreational Drug Type: Reports: Marijuana/Hashish - HOME MEDS Home Medications: Home Meds Aspirin [Adult Low Dose Aspirin EC] 1 tab PO DAILY 01/04/16 [History] Albuterol Sulfate [Proair Respiclick] 2 puff IH Q4H PRN 09/16/18 [History] Ascorbate Calcium [Vitamin C] 500 mg PO DAILY 09/16/18 [History] Aspirin [Halfprin] 81 mg PO DAILY 09/16/18 [History] Chlorzoxazone 500 mg PO TID PRN 09/16/18 [History] Lactobacillus Combination No.4 [Probiotic] 1 cap PO DAILY 09/16/18 [History] Omeprazole Magnesium [Prilosec Otc] 20 mg PO DAILY 09/16/18 [History] Polyethylene Glycol 3350 [MiraLAX] 17 gm PO DAILY 09/16/18 [History] - CURRENT (IN HOUSE) MEDS Current Meds: Current Medications Lactated Ringer's (Ringers, Lactated) 1,000 mls @ 125 mls/hr IV ASDIRECTED TAMARA Stop: 09/17/18 23:00 Lidocaine/Sodium Bicarbonate (Buffered Lidocaine 1% In Ns 8.4%) 0.25 ml IDERM ONETIME PRN PRN Reason: Prior to IV Start Stop: 09/17/18 18:00 Sodium Chloride (Saline Flush) 10 ml FLUSH ASDIRECTED PRN PRN Reason: Keep Vein Open Stop: 09/17/18 18:00
[2018-09-17] MEDS ORDERED: Midazolam 1 MG/ML 2 ML SDV ONE (10:53)
[2018-09-17] MEDS ORDERED: Lidocaine 1% 4 ML ONE (10:53)
[2018-09-17] MEDS ORDERED: Propofol 200 MG/20 ML SDV ONE (10:53)
--- NOTE | 2018-09-17 13:46 | PCM48HPAN ---
Post Anesthesia Note - EVALUATION WITHIN 48HRS OF ANESTHETIC Vital Signs in Normal Range: Yes Patient Participated in Evaluation: Yes Respiratory Function Stable: Yes Airway Patent: Yes Cardiovascular Function Stable: Yes Hydration Status Stable: Yes Pain Control Satisfactory: Yes Nausea and Vomiting Control Satisfactory: Yes Mental Status Recovered: Yes Pulse Rate: 68 SaO2: 96 Resp Rate: 20 Temperature: 37.1 C Blood Pressure: 141/89
[2018-09-17] MEDS ORDERED: Alum Hydrox/Mag Hydrox/Simeth 30 ML, Lidocaine 2% 15 ML PO ONE ×2 (14:08)
--- NOTE | 2018-09-17 14:08 | PCM.OPNOTE ---
- General Post-Op/Procedure Note Date of Surgery/Procedure: 09/17/18 Operative Procedure(s): diagnostic EGD with biopsy Findings: Gastritis and findings suspicious for Denise's esophagus Pre Op Diagnosis: chronic right upper quadrant pain Post-Op Diagnosis: same Anesthesia Technique: MUNIRA Primary Surgeon: Christel Knight Anesthesia Provider: Barbie Machado Pathology: 1. Gastric antrum for H pylori 2. GE junction biopsies in 4 quadrants Output, Urine Amount: 0 EBL in mLs: 0 Complications: none apparent Condition: Good
--- NOTE | 2018-09-17 14:08 | PCM.PRNOTE ---
- Free Text/Narrative Note: Operative Report Date of procedure: September 17, 2018 Preoperative diagnosis: Chronic right upper quadrant abdominal pain Postoperative diagnosis: . Same Surgeon: Christel Knight M.D. Procedure: EGD with biopsy Anesthesia: MAC Anesthesiologist: Barbie Machado CRNA IV fluids: See anesthesia record Estimated blood loss: 0 mL Specimens: 1. Gastric antrum for H. pylori 2. GE junction biopsies in 4 quadrants Indication: The patient is an 42 -year-old lady who presented with, chronic right upper quadrant pain. The patient's main complaint was debilitating pain in the right upper quadrant accompanied by a popping sensation. She has a history of H. pylori as well as chronic heartburn. We discussed that this is likely a mixed picture of different problems. We will proceed with an EGD to diagnose any gastric component. The patient was consented for an EGD with intervention. Risk of bleeding and perforation were discussed. The patient's consent was obtained Description of the procedure: The patient was taken to the endoscopy suite and placed on hemodynamic monitoring. The nurse clinical analyst induced MAC anesthesia. A bite block was placed. The patient was positioned in the left lateral decubitus position. A timeout was performed. The endoscope was gently placed into the mouth to the back of the pharynx and introduced into the esophagus. The scope was gently advanced under direct visualization down to the level of the lower esophageal sphincter. The stomach was then entered. Normal rugal folds were noted. There was increased fluid within the stomach. The scope was advanced into the antrum. We noted diffuse gastritis throughout the stomach, as well as areas of congestion and erythema. Biopsies were taken of the gastric antrum mucosa with cold biopsy forceps and sent for H. pylori testing. There was bile reflux into the stomach during the EGD. The pylorus was then entered and the first and second portion of the duodenum was inspected. The duodenal mucosa appeared normal and there were no ulcerations in the duodenum. The scope was then retroflexed in the cardia and fundus were investigated. There is no evidence of any hiatal hernia. The scope was then withdrawn while inspecting the esophagus. The Z line was noted to be irregular with a very small island of salmon-colored mucosa separate from the Z line. Biopsies were taken in 4 quadrants to be evaluated for Denise's esophagus. There was no esophagitis. The procedure was terminated. the patient tolerated the procedure well without any evidence of complications. Instructions: The patient was given a GI cocktail in the postoperative area. She was given a prescription for sucralfate tabs. She will be maintained on a PPI. Follow up in clinic for discussion of pathology. Discussed the importance of decreasing alcohol intake and smoking cessation. Christel Knight MD General Surgery
[2018-09-17 14:47] VITALS: BP 141/77
== END 2018-09-17 14:39 | disposition home or self-care (01) ==
LOC: JD.SDS 10:16
PROVIDERS: ATTEND Surgery
DX: K29.50 Unspecified chronic gastritis without bleeding (principal); K20.9 Esophagitis, unspecified; J45.909 Unspecified asthma, uncomplicated; E66.9 Obesity, unspecified; Z68.41 Body mass index [BMI] 40.0-44.9, adult; F17.210 Nicotine dependence, cigarettes, uncomplicated; K21.9 Gastro-esophageal reflux disease without esophagitis; F32.9 Major depressive disorder, single episode, unspecified; Z79.82 Long term (current) use of aspirin; Z79.899 Other long term (current) drug therapy; Z88.0 Allergy status to penicillin; Z88.5 Allergy status to narcotic agent; Z88.2 Allergy status to sulfonamides; Z91.040 Latex allergy status
CPT/HCPCS: 43239; A9270; J2001; J2250; J2704; J7120; 00731

== ENCOUNTER 2018-11-18 14:22 | Emergency (ER) | payer MEDICAID ==
[2018-11-18 14:56] VITALS: BP 142/80
--- NOTE | 2018-11-18 15:07 | EDM.PDOC ---
ED HPI GENERAL MEDICAL PROBLEM - General Chief Complaint: Abdominal Pain Stated Complaint: ABD PAIN/BACK PAIN NAUSEA Time Seen by Provider: 11/18/18 15:06 Source of Information: Reports: Patient History Limitations: Reports: No Limitations - History of Present Illness INITIAL COMMENTS - FREE TEXT/NARRATIVE: 43yo F comes in today for 5/10 abdominal and flank pain x2 days, getting worse. She also c/o chills, dysuria, urinary dribbling, nausea. She has had similar symptoms a few years ago when she had a kidney infection. She states she's unsure as to what caused this as she is urinating after sex, wiping front to back, and not holding her urine for long period of time. She states "I think it' s the Protonix I'm on". Movement and urinating makes the pain worse, nothing makes the pain better. She did try Tylenol with no relief. No other concerns at this time. PCP is RAUL Gamez. Abdomen Pain Score (Numeric/FACES): 6 - Related Data Allergies Allergy/AdvReac Type Severity Reaction Status Date / Time hydromorphone [From Dilaudid] Allergy Other Verified 11/18/18 14:56 latex Allergy Hives Verified 11/18/18 14:56 Penicillins Allergy Cannot Verified 11/18/18 14:56 Remember Sulfa (Sulfonamide Allergy Cannot Verified 11/18/18 14:56 Antibiotics) Remember meperidine HCl [From Demerol] AdvReac Other Verified 11/18/18 14:56 Home Meds: Home Meds Albuterol Sulfate [Proair Respiclick] 2 puff IH Q4H PRN 09/16/18 [History] Aspirin [Halfprin] 81 mg PO DAILY 09/16/18 [History] Lactobacillus Combination No.4 [Probiotic] 1 cap PO DAILY 09/16/18 [History] Omeprazole Magnesium [Prilosec Otc] 40 mg PO DAILY 09/16/18 [History] Acetaminophen [Tylenol] 325 mg PO DAILY 11/18/18 [History] Ciprofloxacin HCl [Cipro] 500 mg PO BID 7 Days #14 tablet 11/18/18 [Rx] Linaclotide [Linzess] 72 mcg PO DAILY 11/18/18 [History] Phenazopyridine HCl [Pyridium] 200 mg PO TID 2 Days #6 tablet 11/18/18 [Rx] Past Medical History HEENT History: Reports: Other (See Below) Other HEENT History: Tinnitus Cardiovascular History: Reports: None Respiratory History: Reports: Asthma Gastrointestinal History: Reports: GERD Other Gastrointestinal History: Ulcer, H. 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: Endometriosis, , Spontaneous Musculoskeletal History: Reports: Arthritis, Back Pain, Chronic Neurological History: Reports: Seizure, Other (See Below) Other Neuro History: Numbness of feet Psychiatric History: Reports: Addiction, Anxiety Endocrine/Metabolic History: Reports: Obesity/BMI 30+, Other (See Below) Other Endocrine/Metabolic History: Fatigue Hematologic History: Reports: Anemia Immunologic History: Reports: None Other Immunologic History: diagnosed with lupus in 2013: self management at this time Oncologic (Cancer) History: Reports: None Dermatologic History: Reports: None Other Dermatologic History: lupus rash. - Infectious Disease History Infectious Disease History: Reports: None - Past Surgical History Head Surgeries/Procedures: Reports: None HEENT Surgical History: Reports: Myringotomy w Tube(s), Tonsillectomy, Other ( See Below) Cardiovascular Surgical History: Reports: None Respiratory Surgical History: Reports: None GI Surgical History: Reports: Cholecystectomy Female Surgical History: Reports: Section, Cystectomy, Hysterectomy , Tubal Ligation Endocrine Surgical History: Reports: None Musculoskeletal Surgical History: Reports: Other (See Below) Other Musculoskeletal Surgeries/Procedures:: Bilateral recession gastrocnemius soleus with osteotomy Oncologic Surgical History: Reports: None Dermatological Surgical History: Reports: None Social & Family History - Tobacco Use Smoking Status *Q: Current Every Day Smoker Years of Tobacco use: 30 Packs/Tins Daily: 0.5 - Caffeine Use Caffeine Use: Reports: Coffee, Energy Drinks, Soda, Tea - Recreational Drug Use Recreational Drug Use: No ED ROS GENERAL - Review of Systems Review Of Systems: ROS reveals no pertinent complaints other than HPI. ED EXAM, RENAL/ - Physical Exam Exam: See Below Exam Limited By: No Limitations General Appearance: Alert, WD/WN, No Apparent Distress Eye Exam: Bilateral Eye: EOMI, Normal Inspection, PERRL Respiratory/Chest: No Respiratory Distress, Lungs Clear, Normal Breath Sounds, No Accessory Muscle Use, Chest Non-Tender Cardiovascular: Normal Peripheral Pulses, Regular Rate, Rhythm, No Edema, No Gallop, No JVD, No Murmur, No Rub GI/Abdominal: Normal Bowel Sounds, Soft, Non-Tender, No Organomegaly, No Distention, No Abnormal Bruit, No Mass (Female) Exam: Deferred Back Exam: Normal Inspection, CVA Tenderness (L) Psychiatric: Normal Affect, Normal Mood Skin Exam: Warm, Dry, Intact, Normal Color, No Rash Course - Vital Signs Last Recorded V/S: Last Vital Signs Temp 97.6 F 11/18/18 14:53 Pulse 72 11/18/18 14:53 Resp 16 11/18/18 14:53 BP 142/80 H 11/18/18 14:53 Pulse Ox 96 11/18/18 14:53 - Orders/Labs/Meds Orders: Active Orders 24 hr Category Date Time Status CULTURE URINE [RM] Stat Lab 11/18/18 15:05 Received Vancomycin 1 gm Med 11/18/18 16:15 Active Sodium Chloride 0.9% [Normal Saline] 250 ml IV ONETIME Medication Orders Vancomycin HCl 1 gm/ Sodium (Chloride) 250 mls @ 250 mls/hr IV ONETIME STA Stop: 11/18/18 17:14 Last Admin: 11/18/18 16:23 Dose: 250 mls/hr Labs: Laboratory Tests 11/18/18 11/18/18 11/18/18 Range/Units 15:05 15:15 15:15 WBC 16.71 H (3.98-10.04) K/mm3 RBC 3.84 L (3.98-5.22) M/mm3 Hgb 12.3 (11.2-15.7) gm/L Hct 37.6 (34.1-44.9) % MCV 97.9 H (79.4-94.8) fl MCH 32.0 (25.6-32.2) pg MCHC 32.7 (32.2-35.5) g/dl RDW Std Deviation 49.0 H (36.4-46.3) fL Plt Count 213 (182-369) K/mm3 MPV 11.5 (9.4-12.3) fl Neut % (Auto) 69.3 (34.0-71.1) % Lymph % (Auto) 20.6 (19.3-51.7) % [place] % (Auto) 7.4 (4.7-12.5) % Eos % (Auto) 2.3 (0.7-5.8) Baso % (Auto) 0.2 (0.1-1.2) % Neut # (Auto) 11.58 H (1.56-6.13) K/mm3 Lymph # (Auto) 3.44 (1.18-3.74) K/mm3 [place] # (Auto) 1.24 H (0.24-0.36) K/mm3 Eos # (Auto) 0.38 H (0.04-0.36) K/mm3 Baso # (Auto) 0.04 (0.01-0.08) K/mm3 Sodium 139 (136-145) mEq/L Potassium 3.4 L (3.5-5.1) mEq/L Chloride 104 (98-107) mEq/L Carbon Dioxide 24 (21-32) mEq/L Anion Gap 14.4 (5-15) BUN 12 (7-18) mg/dL Creatinine 0.7 (0.55-1.02) mg/dL Est Cr Clr Drug Dosing 77.39 mL/min Estimated GFR (MDRD) > 60 (>60) mL/min BUN/Creatinine Ratio 17.1 (14-18) Glucose 107 H (74-106) mg/dL Calcium 8.9 (8.5-10.1) mg/dL Total Bilirubin 0.3 (0.2-1.0) mg/dL AST 14 L (15-37) U/L ALT 24 (14-59) U/L Alkaline Phosphatase 45 L (46-116) U/L C-Reactive Protein 2.5 H* (<1.0) mg/dL Total Protein 6.5 (6.4-8.2) g/dl Albumin 3.3 L (3.4-5.0) g/dl Globulin 3.2 gm/dL Albumin/Globulin Ratio 1.0 (1-2) Urine Color Light yellow (Yellow) Urine Appearance Cloudy H (Clear) Urine pH 7.0 (5.0-8.0) Ur Specific [place] 1.015 (1.005-1.030) Urine Protein 2+ H (Negative) Urine Glucose (UA) Negative (Negative) Urine Ketones Negative (Negative) Urine Occult Blood 2+ H (Negative) Urine Nitrite Negative (Negative) Urine Bilirubin Negative (Negative) Urine Urobilinogen 0.2 (0.2-1.0) Ur Leukocyte Esterase 3+ H (Negative) Urine RBC 0-5 (0-5) /hpf Urine WBC 50-75 H (0-5) /hpf Ur Epithelial Cells 5-10 H (0-5) /hpf Urine Bacteria Few (FEW) /hpf Urine Mucus Few (FEW) /hpf Meds: Medications Generic Name Dose Route Start Last Admin Trade Name Freq PRN Reason Stop Dose Admin Vancomycin HCl 1 gm/ Sodium 250 mls @ 250 mls/hr 11/18/18 16:15 11/18/18 16: 23 Chloride IV 11/18/18 17:14 250 mls/hr ONETIME STA Administration Discontinued Medications Generic Name Dose Route Start Last Admin Trade Name Freq PRN Reason Stop Dose Admin Acetaminophen 650 mg 11/18/18 16:16 11/18/18 16:22 Tylenol PO 11/18/18 16:17 650 mg NOW ONE Administration Vancomycin HCl 1 gm/ Sodium 250 mls @ 250 mls/hr 11/18/18 15:59 11/18/18 16: 16 Chloride IV 11/18/18 16:58 Not Given ONETIME ONE - Re-Assessments/Exams Free Text/Narrative Re-Assessment/Exam: 11/18/18 15:07 Ordered CBC, CMP, CRP, UA 11/18/18 15:56 CBC is remarkable for WBC 16.71. CMP shows K 3.4, GLu 107, AST 14, Alk Phos 45, CRP 2.5, Albumin 33 UA impressive for UTI: 50-75 WBCs, 3+ Leuk esterase, 2+ blood At this point, it seem that with her history, physical exam (CVA tenderness), and these labs, it is likely she has Pyelonephritis. Will send home with Cipro 500 BID x 5-7 days with follow up with primary care provider. 11/18/18 16:15 Vanco 1g IV given, as pt cannot take Rocephin d/t PCN allergy 11/18/18 16:41 At this time, pt is stable to go home. Departure - Departure Time of Disposition: 16:42 Disposition: Home, Self-Care 01 Condition: Fair Clinical Impression: Pyelonephritis - Discharge Information *PRESCRIPTION DRUG MONITORING PROGRAM REVIEWED*: Not Applicable *COPY OF PRESCRIPTION DRUG MONITORING REPORT IN PATIENT PEDRITO: Not Applicable Prescriptions: Ciprofloxacin HCl [Cipro] 500 mg PO BID 7 Days #14 tablet Phenazopyridine HCl [Pyridium] 200 mg PO TID 2 Days #6 tablet Instructions: Pyelonephritis, Adult, [id number] Referrals: Zina Tirado, DIRECTOR OF QUALITY CONTROL [Primary Care Provider] - Forms: ED Department Discharge Additional Instructions: You were seen in the ED today for abdominal and back pain since Thursday. At this time, your labs and your symptoms of chills, difficulty/painful urination suggest you likely have a kidney infection (pyelonephritis). You were given one dose of IV antibiotics while here and will be sent home with Cipro 500mg twice per day for 5-7 days. Please take ALL pills as prescribed to avoid creating a "super bug" that is resistant to antibiotics. Also prescribed Pyridium for relief of urinary pain, take with meals for 2 days. Recommend close follow up with your primary care provider. Please return to ED if new or worsening symptoms. - My Orders Last 24 Hours: My Active Orders 11/18/18 15:05 CULTURE URINE [RM] Stat 11/18/18 16:15 Vancomycin 1 gm Sodium Chloride 0.9% [Normal Saline] 250 ml IV ONETIME - Assessment/Plan Last 24 Hours: My Active Orders 11/18/18 15:05 CULTURE URINE [RM] Stat 11/18/18 16:15 Vancomycin 1 gm Sodium Chloride 0.9% [Normal Saline] 250 ml IV ONETIME
[2018-11-18] MEDS ORDERED: Acetaminophen 325 MG Tab PO ONE (16:16)
== END 2018-11-18 17:26 | disposition home or self-care (01) ==
LOC: JD.ED 14:22
DX: N12 Tubulo-interstitial nephritis, not specified as acute or chronic (principal); K21.9 Gastro-esophageal reflux disease without esophagitis; J45.909 Unspecified asthma, uncomplicated; F41.9 Anxiety disorder, unspecified; D64.9 Anemia, unspecified; F17.210 Nicotine dependence, cigarettes, uncomplicated; Z88.5 Allergy status to narcotic agent; Z91.040 Latex allergy status; Z88.0 Allergy status to penicillin; Z88.2 Allergy status to sulfonamides; Z88.6 Allergy status to analgesic agent; Z79.82 Long term (current) use of aspirin; Z79.899 Other long term (current) drug therapy
CPT/HCPCS: 36415; 80053; 81001; 85025; 86140; 87086; 87088; 87186; 96365; 99284; A9270; J3370; J7050

== ENCOUNTER 2018-12-23 14:30 | Emergency (ER) | payer MEDICAID ==
[2018-12-23 14:54] VITALS: BP 118/85
[2018-12-23] MEDS ORDERED: Ketorolac 30 MG/ML SDV IM ONE (15:31)
--- NOTE | 2018-12-23 15:44 | EDM.PDOC ---
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 She has never had pain like this before. She states she simply slipped and her "foot went out under me". She thinks there are about 13-15 stairs and she hit all of them. She denies hitting her head, LOC. She does not feel like she has broken any bones, but states she is having severe pain to the neck and lumbar region, about 6-7/10. She is also c/o new onset HART, dizziness, nausea and some changes in her vision (daughter states she was unable to read her phone ). She is on ASA 81mg daily. No other concerns at this time. PCP is RAUL Gamez. Lower Back Pain Score (Numeric/FACES): 8 - Related Data Allergies Allergy/AdvReac Type Severity Reaction Status Date / Time hydromorphone [From Dilaudid] Allergy Other Verified 12/23/18 14:48 latex Allergy Hives Verified 12/23/18 14:48 Penicillins Allergy Cannot Verified 12/23/18 14:48 Remember Sulfa (Sulfonamide Allergy Cannot Verified 12/23/18 14:48 Antibiotics) Remember meperidine HCl [From Demerol] AdvReac Other Verified 12/23/18 14:48 Home Meds: Home Meds Albuterol Sulfate [Proair Respiclick] 2 puff IH Q4H PRN 09/16/18 [History] Aspirin [Halfprin] 81 mg PO DAILY 09/16/18 [History] Lactobacillus Combination No.4 [Probiotic] 1 cap PO DAILY 09/16/18 [History] Omeprazole Magnesium [Prilosec Otc] 40 mg PO DAILY 09/16/18 [History] Acetaminophen [Tylenol] 325 mg PO DAILY PRN 11/18/18 [History] Linaclotide [Linzess] 72 mcg PO DAILY PRN 11/18/18 [History] Naproxen 500 mg PO BID PRN 7 Days #14 tablet 12/23/18 [Rx] Orphenadrine [Norflex] 100 mg PO BID PRN #14 tab 12/23/18 [Rx] Past Medical History HEENT History: Reports: Impaired Vision, Other (See Below) Other HEENT History: Tinnitus Cardiovascular History: Reports: None Respiratory History: Reports: Asthma Gastrointestinal History: Reports: GERD Other Gastrointestinal History: Ulcer, H. 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 Musculoskeletal History: Reports: Arthritis, Back Pain, Chronic Neurological History: Reports: Seizure, Other (See Below) Other Neuro History: Numbness of feet Psychiatric History: Reports: Addiction, Anxiety Endocrine/Metabolic History: Reports: Obesity/BMI 30+, Other (See Below) Other Endocrine/Metabolic History: Fatigue Hematologic History: Reports: Anemia Immunologic History: Reports: None Other Immunologic History: diagnosed with lupus in 2013: self management at this time Oncologic (Cancer) History: Reports: None Dermatologic History: Reports: None Other Dermatologic History: lupus rash. - Infectious Disease History Infectious Disease History: Reports: None - Past Surgical History Head Surgeries/Procedures: Reports: None HEENT Surgical History: Reports: Myringotomy w Tube(s), Oral Surgery, Tonsillectomy, Other (See Below) Cardiovascular Surgical History: Reports: None Respiratory Surgical History: Reports: None GI Surgical History: Reports: Cholecystectomy Female Surgical History: Reports: Section, Cystectomy, Hysterectomy , Tubal Ligation Endocrine Surgical History: Reports: None Musculoskeletal Surgical History: Reports: Other (See Below) Other Musculoskeletal Surgeries/Procedures:: Bilateral recession gastrocnemius soleus with osteotomy Oncologic Surgical History: Reports: None Dermatological Surgical History: Reports: None Social & Family History - Family History Family Medical History: Noncontributory - Tobacco Use Smoking Status *Q: Current Every Day Smoker Years of Tobacco use: 27 Packs/Tins Daily: 1 - Caffeine Use Caffeine Use: Reports: Coffee, Energy Drinks, Soda, Tea - Recreational Drug Use Recreational Drug Use: No ED ROS GENERAL - Review of Systems Review Of Systems: ROS reveals no pertinent complaints other than HPI. ED EXAM,LOWER BACK PAIN/INJURY - Physical Exam Exam: See Below Exam Limited By: No Limitations General Appearance: Alert, WD/WN, Moderate Distress, Obese Eye Exam: Right Eye: Nystagmus, Bilateral Eye: EOMI, Normal Inspection, PERRL Ears: Normal External Exam, Normal Canal, Hearing Grossly Normal, Normal TMs Nose: Normal Inspection, Normal Mucosa, No Blood Throat/Mouth: Normal Inspection, Normal Lips, Normal Teeth, Normal Gums, Normal Oropharynx, Normal Voice, No Airway Compromise Head: Atraumatic, Normocephalic Neck: Normal Inspection, Supple, Limited Range of Motion (d/t pain), Tender Midline. No: Tender Lateral Respiratory/Chest: No Respiratory Distress, Lungs Clear, Normal Breath Sounds, No Accessory Muscle Use, Chest Non-Tender Cardiovascular: Normal Peripheral Pulses, Regular Rate, Rhythm, No Edema, No Gallop, No JVD, No Murmur, No Rub Back Exam: Normal Inspection, Full Range of Motion (pain with movement), Vertebral Tenderness (mild). No: Paraspinal Tenderness Extremities: Normal Inspection, Normal Range of Motion, Non-Tender, No Pedal Edema, Normal Capillary Refill Neurological: Alert, Normal Mood/Affect, Normal Dorsiflexion, CN II-XII Intact, Normal Plantar Flexion, Normal Gait, Normal Reflexes, No Motor/Sensory Deficits , Oriented x 3 Psychiatric: Normal Affect, Tearful Skin Exam: Warm, Dry, Intact, Normal Color, No Rash, Other (R knee has small contusion) Course - Vital Signs Last Recorded V/S: Last Vital Signs Temp 96.7 F 12/23/18 14:52 Pulse 76 12/23/18 14:52 Resp 16 12/23/18 14:52 BP 118/85 12/23/18 14:52 Pulse Ox 97 12/23/18 14:52 - Orders/Labs/Meds Orders: Active Orders 24 hr Category Date Time Status Vision Test [RC] ASDIRECTED Care 12/23/18 15:45 Active Cervical Spine 2V or 3V [CR] Stat Exams 12/23/18 15:36 Taken Lumbar Spine 2 or 3V [CR] Stat Exams 12/23/18 15:35 Taken Meds: Medications Discontinued Medications Generic Name Dose Route Start Last Admin Trade Name Freq PRN Reason Stop Dose Admin Ketorolac Tromethamine 30 mg 12/23/18 15:31 12/23/18 16:06 Toradol IM 12/23/18 15:32 30 mg ONETIME ONE Administration - Re-Assessments/Exams Free Text/Narrative Re-Assessment/Exam: 12/23/18 15:30 Ordered Xray of cervical and lumbar spine Toradol 30mg IM Offered Xray of left elbow and leg, but she states she doesn't feel she needs them. Neurovascularly intact, good ROM. 12/23/18 17:[address] Barry and myself- nothing acute seen. At this time, pt is stable enough to go home. She is feeling better after the Toradol. Will send her home with Naproxen and Norflex for pain. Recommend follow up with PCP. If continues to worsen, recommend f/u with orthopedic. Departure - Departure Time of Disposition: 17:47 Disposition: DC/Tfer to SNF 03 Condition: Fair Clinical Impression: Strain of neck Qualifiers: Encounter type: initial encounter Qualified Code(s): S16.1XXA - Strain of muscle, fascia and tendon at neck level, initial encounter Strain of lumbar region Qualifiers: Encounter type: initial encounter Qualified Code(s): S39.012A - Strain of muscle, fascia and tendon of lower back, initial encounter - Discharge Information *PRESCRIPTION DRUG MONITORING PROGRAM REVIEWED*: Yes *COPY OF PRESCRIPTION DRUG MONITORING REPORT IN PATIENT PEDRITO: No Prescriptions: Naproxen 500 mg PO BID PRN 7 Days #14 tablet PRN Reason: neck or back pain Orphenadrine [Norflex] 100 mg PO BID PRN #14 tab PRN Reason: muscle spasm/pain Instructions: Cryotherapy, [id number], Muscle Strain, [id number] Referrals: Zina Tirado, MASK DESIGN ENGINEER [Primary Care Provider] - Forms: ED Department Discharge Additional Instructions: You were seen in the ED today for neck and back pain after a fall down the stairs. Your Xrays showed no fractures. At this time, you have likely sprained your neck and lower back. You did have some relief here with a strong anti- inflammatory drug. Will send you home with Naproxen 1 tab twice a day as needed for pain relief. You will also be prescribed Norflex one tablet twice a day as needed for muscle pain and spasm. Recommend using ice and then moist heat to the back for additional pain relief. May also use a topical products such as icyhot or BenGay. Recommend following up with physical therapy. Can make an appointment w/ [facility] at [phone]. Recommend follow-up with your primary care provider if your symptoms have not improved within one week, may need a referral from them for an orthopedic surgeon. Please return to ED if new or worsening symptoms. - My Orders Last 24 Hours: My Active Orders 12/23/18 15:35 Lumbar Spine 2 or 3V [CR] Stat 12/23/18 15:36 Cervical Spine 2V or 3V [CR] Stat 12/23/18 15:45 Vision Test [RC] ASDIRECTED - Assessment/Plan Last 24 Hours: My Active Orders 12/23/18 15:35 Lumbar Spine 2 or 3V [CR] Stat 12/23/18 15:36 Cervical Spine 2V or 3V [CR] Stat 12/23/18 15:45 Vision Test [RC] ASDIRECTED
--- NOTE | 2018-12-23 18:05 | CR ---
Cervical spine: AP, lateral, odontoid and swimmer's views of the cervical spine were obtained. Comparison: No prior cervical spine imaging. Calcifications noted anterior to the discs at C4-C5 and C5-C6 which is felt to be degenerative in etiology. Mild associated anterior osteophytes are seen. Vertebral body heights and disc spaces are fairly well preserved. Prevertebral soft tissues are normal. No subluxation or fracture is seen. Impression: 1. Mild degenerative change as noted above. Nothing acute is definitely appreciated. Diagnostic code #2
--- NOTE | 2018-12-23 18:05 | CR ---
Lumbar spine: AP, lateral and cone-down lateral views centered to the lumbosacral junction were obtained. Comparison: No previous study. Vertebral body heights and disc spaces are maintained. There are minimal scattered endplate osteophytes being seen. Pedicles as well as visualized transverse and spinous processes are intact. No subluxation or discrete fracture is appreciated. Impression: 1. Incidental findings. Nothing acute is definitely appreciated. Diagnostic code #2
== END 2018-12-23 18:06 | disposition home or self-care (01) ==
LOC: JD.ED 14:30
DX: S16.1XXA Strain of muscle, fascia and tendon at neck level, initial encounter (principal); S39.012A Strain of muscle, fascia and tendon of lower back, initial encounter; F17.210 Nicotine dependence, cigarettes, uncomplicated; K21.9 Gastro-esophageal reflux disease without esophagitis; J45.909 Unspecified asthma, uncomplicated; Z79.82 Long term (current) use of aspirin; Z79.899 Other long term (current) drug therapy; Z91.040 Latex allergy status; Z88.0 Allergy status to penicillin; Z88.2 Allergy status to sulfonamides; Z88.5 Allergy status to narcotic agent; Z88.6 Allergy status to analgesic agent; W10.9XXA Fall (on) (from) unspecified stairs and steps, initial encounter
CPT/HCPCS: 72040; 72100; 96372; 99283; J1885

== ENCOUNTER 2019-04-30 23:45 | Emergency (ER) | payer MEDICAID ==
[2019-05-01 00:04] VITALS: BP 118/83; PULSE 99
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
--- NOTE | 2019-05-02 14:12 | CR ---
Right hand: Four views of the right hand were obtained. Comparison: No prior hand exam. Joint spaces appear fairly well preserved. No focal erosive change is seen. No fracture or other bony abnormality is identified. Impression: 1. No abnormality is appreciated on right hand exam. Diagnostic code #1
--- NOTE | 2019-05-02 14:12 | CR ---
Right forearm: Two views of the right forearm were obtained. Comparison: No previous study. No fracture or other bony abnormality is seen. Impression: 1. No abnormality is identified on right forearm study. Diagnostic code #1
== END 2019-05-01 01:48 | disposition home or self-care (01) ==
LOC: JD.ED 23:45
DX: S56.911A Strain of unspecified muscles, fascia and tendons at forearm level, right arm, initial encounter (principal); S63.501A Unspecified sprain of right wrist, initial encounter; S60.221A Contusion of right hand, initial encounter; S60.222A Contusion of left hand, initial encounter; S00.83XA Contusion of other part of head, initial encounter; J45.909 Unspecified asthma, uncomplicated; K21.9 Gastro-esophageal reflux disease without esophagitis; F41.9 Anxiety disorder, unspecified; F17.210 Nicotine dependence, cigarettes, uncomplicated; Z88.6 Allergy status to analgesic agent; Z91.040 Latex allergy status; Z88.2 Allergy status to sulfonamides; Z88.0 Allergy status to penicillin; Z79.82 Long term (current) use of aspirin; Z79.899 Other long term (current) drug therapy; Z88.5 Allergy status to narcotic agent; Y04.0XXA Assault by unarmed brawl or fight, initial encounter
CPT/HCPCS: 73090-26-RT; 73090-RT; 73130-26-RT; 73130-RT; 99282; 99283-25

== ENCOUNTER 2019-05-07 17:36 | Emergency (ER) | payer MEDICAID ==
[2019-05-07 17:57] VITALS: BP 134/94; PULSE 98
== END 2019-05-07 18:34 | disposition left against medical advice (07) ==
LOC: JD.ED 17:36
DX: Z53.21 Procedure and treatment not carried out due to patient leaving prior to being seen by health care provider (principal)

== ENCOUNTER 2020-03-27 22:28 | Emergency (ER) | payer SELFPAY ==
[2020-03-27 22:35] VITALS: BP 131/92; PULSE 86
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
--- NOTE | 2020-03-28 09:23 | CT ---
CT cervical spine Technique: Multiple axial sections were obtained from above C2 inferiorly to the top of T3. Reconstructed coronal and sagittal images were reviewed. Comparison: Prior cervical spine plain film study of 12/23/18. Findings: Degenerative change is noted between the dens and anterior arch of C1. Minimal scattered disc space narrowing is noted. Slight anterior osteophytes are noted at C3-C4 and C4-C5 with more prominent anterior osteophytes at C5-C6. Scattered degenerative apophyseal change most prominent on the left side within the upper thoracic spine. No bony central or bony neural foraminal stenosis is seen. No abnormal subluxation is appreciated. Impression: 1. Mild degenerative change. 2. No acute fracture or other bony abnormality is appreciated. Diagnostic code #2 I agree with preliminary report issued by [facility] ([facility] preliminary report dictated on 03/28/20, 1:27 AM Central Daylight Time) Study was dictated in MDT
--- NOTE | 2020-03-28 09:25 | CT ---
Head CT Technique: Multiple axial sections through the brain were obtained. Intravenous contrast was not utilized. Comparison: No prior intracranial imaging is available Findings: Ventricles along with basal cisterns and sulci over the convexities are within normal limits for the patient's age. No abnormal parenchymal densities are seen. No evidence of intracranial hemorrhage. No midline shift or mass effect is seen. Mild mucosal thickening is noted within the left maxillary sinus. No air-fluid levels are seen within the visualized paranasal sinuses. Visualized mastoid sinuses show nothing acute. No acute calvarial finding is appreciated. Impression: 1. Minimal sinus findings believed to be pre-existing and chronic. 2. Nothing acute is appreciated on noncontrast head CT study. Diagnostic code #2 I agree with preliminary report issued by [facility] ([facility] preliminary report dictated on 03/28/20, 1:24 AM Central Daylight Time) Study was dictated in MDT
== END 2020-03-28 00:42 | disposition home or self-care (01) ==
LOC: JD.ED 22:28
DX: S09.90XA Unspecified injury of head, initial encounter (principal); S16.1XXA Strain of muscle, fascia and tendon at neck level, initial encounter; J45.909 Unspecified asthma, uncomplicated; E66.9 Obesity, unspecified; Z88.5 Allergy status to narcotic agent; Z88.0 Allergy status to penicillin; Z88.2 Allergy status to sulfonamides; Z88.8 Allergy status to other drugs, medicaments and biological substances; Z91.040 Latex allergy status; Z79.82 Long term (current) use of aspirin; Z79.899 Other long term (current) drug therapy; Y04.0XXA Assault by unarmed brawl or fight, initial encounter
CPT/HCPCS: 70450; 70450-26; 72125; 72125-26; 99282; 99284-25

== ENCOUNTER 2022-09-06 15:05 | Emergency (ER) | payer MEDICAID ==
[2022-09-06] MEDS ORDERED: HYDROmorphone 0.5 MG/0.5 ML Syringe IVPUSH ONE (17:00)
[2022-09-06 17:50] VITALS: BP 126/83; PULSE 80
== END 2022-09-06 17:30 | disposition home or self-care (01) ==
LOC: JD.ED 15:05
DX: M54.50 Low back pain, unspecified (principal); M62.830 Muscle spasm of back; J45.909 Unspecified asthma, uncomplicated; F17.210 Nicotine dependence, cigarettes, uncomplicated; E66.9 Obesity, unspecified; Z68.41 Body mass index [BMI] 40.0-44.9, adult; Z91.040 Latex allergy status; Z88.0 Allergy status to penicillin; Z88.2 Allergy status to sulfonamides; Z88.5 Allergy status to narcotic agent; Z79.82 Long term (current) use of aspirin
CPT/HCPCS: 72100; 73502; 96374; 99284; J1170

== ENCOUNTER 2022-10-14 00:28 | Emergency (ER) | payer MEDICAID ==
[2022-10-14] MEDS ORDERED: Ondansetron 4 MG/2 ML SDV IVPUSH ONE ×2 (01:33→04:07)
[2022-10-14] MEDS ORDERED: fentaNYL 100 MCG/2 ML SDV IVPUSH ONE (01:34)
[2022-10-14 01:36] VITALS: BP 156/92; PULSE 88
[2022-10-14] MEDS ORDERED: Lactated Ringers 1,000 ML IV SCH (01:45)
== END 2022-10-14 05:36 | disposition home or self-care (01) ==
LOC: JD.ED 00:28
DX: K52.9 Noninfective gastroenteritis and colitis, unspecified (principal); J45.909 Unspecified asthma, uncomplicated; E66.9 Obesity, unspecified; Z68.41 Body mass index [BMI] 40.0-44.9, adult; Z91.040 Latex allergy status; Z88.2 Allergy status to sulfonamides; Z88.6 Allergy status to analgesic agent; Z88.8 Allergy status to other drugs, medicaments and biological substances; Z79.899 Other long term (current) drug therapy; Z79.82 Long term (current) use of aspirin; Z90.49 Acquired absence of other specified parts of digestive tract; Z90.710 Acquired absence of both cervix and uterus
CPT/HCPCS: 36415; 74176; 80053; 81001; 83690; 85025; 96361; 96374; 96375; 96376; 99285; J2405; J3010; J7120; 99284